=== PATIENT | female | born 1990 | race Caucasian/White ===

== ENCOUNTER 2017-05-16 09:16 | Inpatient (IN) | payer OTHER ==
[~2017-05-16] VITALS: Ht 160 cm; Wt 57.9 kg
--- NOTE | ~2017-05-16 | EKG ---
PATIENT: CORONA OLMSTEAD UNIT #: [id number] Ventricular Rate: 125 BPM Atrial Rate: 125 BPM P-R Interval: 130 ms QRS Duration: 72 ms Q-T Interval: 314 ms QTC Calculation(Bezet): 453 ms P Rentz: 58 degrees Calculated R Rentz: 88 degrees Calculated T Rentz: -39 degrees Diagnosis Line: Sinus tachycardia Diagnosis Line: ST and T wave abnormality, consider inferior Diagnosis Line: ischemia Diagnosis Line: Abnormal ECG Diagnosis Line: No previous ECGs available Diagnosis Line: Confirmed by ROSALES SERNA MD ([id number]) on Diagnosis Line: 05/18/2017 8:23:18 AM INTERPRETING MD: KAREEM KEITA
--- NOTE | ~2017-05-16 | HP ---
Unit #: [id number] #: [id number] Patient: CORONA OLMSTEAD [id number] [address] [address] [id number] I MR#: [id number] NAME: CORONA OLMSTEAD ROOM: 552 Age: 26 Sex: F Admission Date: 05/16/2017 : 1990 Attending Physician: Brigitte Stephens M.D. HISTORY AND PHYSICAL CHIEF COMPLAINT Community-acquired pneumonia. HISTORY OF PRESENT ILLNESS This pleasant, healthy, 26-year-old female was transferred from [facility] Emergency Department for community-acquired pneumonia. The patient was well until yesterday when she developed a nonproductive, deep cough with sore throat, pleuritic chest pain, shortness of breath, head congestion, and myalgias. She presented to [facility] Emergency Department this morning where she was tachycardic, but the rest of her vital signs were normal. Her lactic acid was normal as well, and she was afebrile. Chest x-ray was performed which was suggestive of an infiltrate. She has not been hospitalized over the past three months nor recently taken any antibiotics over the past three months. Denies family illness. She was given Toradol and bolused with two liters of saline after blood cultures were performed. She was then given 2 grams of vancomycin and 4.5 grams of Zosyn. PAST MEDICAL HISTORY Unremarkable. ALLERGIES None. HOME MEDICATIONS Patient took [id number] [place] [facility]. FAMILY HISTORY Negative for heart and lung disease. SOCIAL HISTORY The patient lives with her boyfriend and two children. She denies any possibility of . She smokes one pack per day of tobacco, does not drink alcohol, and does not use illicit drugs. REVIEW OF SYSTEMS Notable for cough, congestion, sore throat, pleuritic chest pain, shortness of breath, tobacco use. All other systems were reviewed and are otherwise negative. PHYSICAL EXAMINATION: GENERAL: A pleasant, somewhat uncomfortable-appearing 26-year-old female Unit #: [id number] #: [id number] Patient: CORONA OLMSTEAD who otherwise is in no acute distress. VITAL SIGNS: She remains afebrile with a temperature of 98, heart rate currently is 82, down from 120, respirations 18, blood pressure 105/63, and O2 saturation was 95% on room air and currently is 99% on 2 liters of oxygen. HEENT: Eyes PERRLA. Extraocular muscles are intact. Pharynx is benign. Tongue is pierced. NECK: Supple without adenopathy or thyromegaly. CHEST: Some mild expiratory wheeze anteriorly. No crackles that I can appreciate. CARDIAC: Normal S1 and S2 without murmur. ABDOMEN: Bowel sounds are present. No hepatosplenomegaly, tenderness, or masses. EXTREMITIES: Without clubbing, cyanosis, or edema. Pedal pulses are present. Of note, there are no splinter hemorrhages noted over the nail beds. NEUROLOGIC: Patient is awake, alert, and oriented. Cranial nerves are intact. Equal strength throughout. DIAGNOSTIC STUDIES ADMISSION LABORATORY: Hematocrit is 44.2 and white blood count is 15.3 with normal platelet count. Normal coags. Negative cardiac enzymes. SMA-12 is completely normal, as is lactic acid. Urinalysis was not performed. IMAGING: Chest x-ray shows mild left infrahilar infiltrate concerning for pneumonia. CARDIOLOGY: EKG shows sinus tachycardia, rate 125, and nonspecific ST wave abnormalities. ASSESSMENT 1. Community-acquired pneumonia. Patient is not septic. She is afebrile with a normal blood pressure and negative lactic acid. 2. Tobacco abuse. PLANS 1. Blood and throat cultures. 2. Change antibiotics to Rocephin and Zithromax as patient has not been hospitalized over the past three months, nor is she immunocompromised. 3. IV fluids and supportive treatment. 4. Smoking cessation counseling and NicoDerm patch. 5. Albuterol and mucolytics. 6. Obtain urinalysis, urine toxicology screen, and HIV. 7. DVT prophylaxis. 8. If a test was not performed, will obtain a test as well. 1. Dictated by Dyan Gomez TD: 05/16/2017 21:15 JOB #: [id number] Unit #: [id number] #: [id number] Patient: CORONA OLMSTEAD HISTORY AND PHYSICAL Page 1 of 1 X Nae Lugo MD HISTORY AND PHYSICAL
--- NOTE | ~2017-05-16 | CR72 ---
[facility]. [facility] A Service of [facility] & [facility] RADIOLOGY TEXT RESULTS PATIENT: CORONA OLMSTEAD LOCATION: SEDOF [id number] : [birth year] UNIT #: [id number] AGE: [address]: KEITH STEPHENS MD SEX: F ORDER DR: [id number] [place] [id number] I MR#: [id number] Acc #: [id number] NAME: CORONA OLMSTEAD : 1990 SEX: F STUDY DATE/TIME: 05/16/2017 9:56 UNIT: SEDOF ROOM: [facility] STUDY DESCRIPTION: CR Chest Single View Portable Attending Physician: Keith Stephens M.D. Ordering Physician: Oliver Curtis M.D. Primary Care Physician: No Primary Care Physician MEDICAL IMAGING REPORT This report is preliminary unless electronic signature is present. EXAM Portable chest, 05/16 INDICATION Cough, shortness of air, and sore throat started yesterday. FINDINGS AP portable chest was obtained. No comparison. Cardiac and mediastinal contours are within normal limits. There is a mild left infrahilar infiltrate concerning for pneumonia. Lungs otherwise are clear. IMPRESSION Mild left infrahilar infiltrate concerning for pneumonia. Exam is otherwise negative. Dictated by... Beck Ramirez Jr., M.D. THIS IS AN ELECTRONICALLY VERIFIED REPORT Beck Ramirez Jr., M.D. at 05/16/2017 3:48 PM LIZZETH/beto TD: 05/16/2017 15:17 JOB #: [id number] MEDICAL IMAGING REPORT Page 1 of 1
--- NOTE | ~2017-05-16 | DS ---
Unit #: [id number] #: [id number] Patient: CORONA OLMSTEAD [id number] [address] [address] [id number] I MR#: [id number] NAME: CORONA OLMSTEAD ROOM: [facility] Age: 26 Sex: F Admission Date: 05/16/2017 : 1990 Discharge Date: 05/18/2017 Attending Physician: Jose Rosen M.D. Primary Care Physician: No Primary Care Physician DISCHARGE SUMMARY PRIMARY DIAGNOSIS Sepsis. SECONDARY DIAGNOSES 1. Community acquired pneumonia. 2. Metabolic acidosis. 3. Hypokalemia. HOSPITAL COURSE The patient was admitted with tachycardia and elevated white blood cell count and the finding of an infiltrate on chest x-ray, as well as cough suggestive of a diagnosis and pneumonia and the finding of an infiltrate on chest x-ray, as well as cough suggestive of a diagnosis and pneumonia. She was admitted to the hospital, was given fluids with bicarb in it for a CO2 level on her BMP of 18 with resolution of the bicarb. Her potassium moved intercellularly with correction of her acidosis with a potassium of 3.4 on the day of discharge, which should resolve without further intervention. She continues to have some cough but was afebrile during her hospitalization. Her tachycardia resolved. Her white blood cell counts came back to normal. Cultures were negative at the time of discharge. Patient did have some mild diarrhea with only a single bowel movement over the twelve hours prior to discharge. She is advised to watch this and come back into the emergency room if it gets significantly worse. Otherwise she can use [id number] medications. DISCHARGE DISPOSITION To home. DISCHARGE STATUS Stable. DISCHARGE ACTIVITY Ad analy. DISCHARGE DIET Unrestricted. DISCHARGE FOLLOWUP With her PCP in one to two weeks. DISCHARGE MEDICATIONS 1. Loperamide 2 mg p.o. q.4 hours p.r.n. diarrhea. 2. Zithromax 500 mg p.o. daily for three days. 3. Omnicef 300 mg p.o. b.i.d. for seven days. Unit #: [id number] #: [id number] Patient: CORONA OLMSTEAD 4. Tessalon Perles 100 mg 2 tablets p.o. t.i.d. p.r.n. for cough. Dictated by... Dyan Noland/yola TD: 05/19/2017 07:24 JOB #: [id number] DISCHARGE SUMMARY Page 1 of 1 X Jose Rosen MD X DISCHARGE SUMMARY
[~2017-05-16 09:16] MED LIST: AMOXICILLIN PO; AMOXICILLIN500 M1 PO; BIRTH CONTROL; LORTAB 5/500 TA1 TA1 PO; MACROBID100 MG PO; NO MEDICATIONS; PRENATAL MULITV1 TAB PO; PRENATAL1 TA1; VICODIN 5/1 TAB 5/50 PO
[2017-05-16] MEDS ORDERED: NO MEDICATIONS (09:28)
[2017-05-16 09:58] LABS: BASOPHIL# 0.1 X10e3 (0-0.3); BASOPHIL% 0.5 % (0-2.5); EOSINOPHIL# 0.2 X10e3 (0-0.7); HEMATOCRIT 44.2 % (35.0-45.0); HEMOGLOBIN 14.9 gm/dL (12.0-16.0); LYMPHOCYTE# 1.3 X10e3 (1.0-3.5); LYMPHOCYTE% 8.6 % (17.0-45.0); MEAN CELL VOLUME 91.9 FL (83-96); MEAN CORPUSCULAR HGB CONC 33.7 g/dL (30-36); MEAN PLATELET VOLUME 8.7 FL (6.5-11.5); MONOCYTE# 0.7 X10e3 (0-1.0); MONOCYTE% 4.9 % (3.0-12.0); PLATELET COUNT 225 X10e3 (140-420); RED BLOOD COUNT 4.81 X10e (3.90-5.30); WHITE BLOOD COUNT 15.3 X10e3 (4.0-10.5)
[2017-05-16 09:59] LABS: DIFF IND NO
[2017-05-16 10:10] LABS: POC - CKMB <1.0 ng/mL (0.0-7.9); POC - MYOGLOBIN 40.9 ng/mL (0.0-169.0)
[2017-05-16 10:11] LABS: POC - TROPONIN <0.05 ng/mL (<=0.05)
[2017-05-16 10:14] LABS: INR 1.2
[2017-05-16 10:22] LABS: ALBUMIN SERUM 4.3 g/dL (3.5-5.0); BILIRUBIN, DIRECT 0.1 mg/dL (0.0-0.2); BILIRUBIN,INDIRECT 0.5 mg/dL (0.0-0.9); BILIRUBIN,TOTAL 0.6 mg/dL (0.2-2.0); BUN/CREATININE RATIO 18.33; CREATININE SERUM 0.6 mg/dL (0.6-1.4); GLOM FILT RATE Estimated 125.8 mL/min (>60); PARTIAL THROMBOPLASTIN TIME 28.6 SECONDS (25.6-38.1); POTASSIUM 3.5 mmol/L (3.5-5.1); PROTEIN TOTAL SERUM 7.2 g/dL (6.0-8.3)
[2017-05-17 06:30] LABS: URINE APPEARANCE CLEAR; URINE BILIRUBIN NEG (NEG); URINE BLOOD NEG (NEG); URINE COLOR YELLOW; URINE GLUCOSE NEG (NEG); URINE KETONE 3+ (NEG); URINE LEUKOCYTE ESTERASE NEG (NEG); URINE NITRATE NEG (NEG); URINE PH 5.5 (5-8); URINE PROTEIN NEG (NEG)
[2017-05-17 06:34] LABS: HEMATOCRIT 35.4 % (35.0-45.0); MEAN CELL VOLUME 92.5 FL (83-96); MEAN CORPUSCULAR HEMOGLOBIN 31.7 PG (28-34); MEAN CORPUSCULAR HGB CONC 34.2 g/dL (30-36); MEAN PLATELET VOLUME 8.8 FL (6.5-11.5); RED BLOOD COUNT 3.82 X10e (3.90-5.30); RED CELL DISTRIBUTION WIDTH 12.9 % (11.0-15.5); WHITE BLOOD COUNT 8.4 X10e3 (4.0-10.5)
[2017-05-17 06:39] LABS: HEMOGLOBIN 12.1 gm/dL (12.0-16.0)
[2017-05-17 07:06] LABS: CALCIUM SERUM 8.3 mg/dL (8.4-10.2); CREATININE SERUM 0.5 mg/dL (0.6-1.4); GLOM FILT RATE Estimated 133.6 mL/min (>60); POTASSIUM 3.7 mmol/L (3.5-5.1)
[2017-05-17 16:57] LABS: AMPHETAMINE NEG (NEG); BARBITURATES NEG (NEG); BENZODIAZEPINES NEG (NEG); COCAINE NEG (NEG); MARIJUANA NEG (NEG); OPIATES POS (NEG); TRICYCLIC ANTIDEPRESSANTS NEG (NEG); U METHADONE NEG (NEG)
[2017-05-18 06:31] LABS: BASOPHIL% 0.5 % (0-2.5); EOSINOPHIL# 0.5 X10e3 (0-0.7); EOSINOPHIL% 7.5 % (0.0-7.0); HEMATOCRIT 33.6 % (35.0-45.0); HEMOGLOBIN 11.4 gm/dL (12.0-16.0); LYMPHOCYTE# 2.7 X10e3 (1.0-3.5); LYMPHOCYTE% 42.1 % (17.0-45.0); MEAN CELL VOLUME 91.2 FL (83-96); MEAN CORPUSCULAR HEMOGLOBIN 30.9 PG (28-34); MEAN CORPUSCULAR HGB CONC 33.9 g/dL (30-36); MEAN PLATELET VOLUME 8.8 FL (6.5-11.5); MONOCYTE# 0.5 X10e3 (0-1.0); NEUTROPHIL# 2.7 X10e3 (1.5-7.1); NEUTROPHIL% 41.9 % (40-75); PLATELET COUNT 190 X10e3 (140-420); RED BLOOD COUNT 3.68 X10e (3.90-5.30); WHITE BLOOD COUNT 6.4 X10e3 (4.0-10.5)
[2017-05-18 06:35] LABS: DIFF IND NO
[2017-05-18 07:07] LABS: CALCIUM SERUM 8.4 mg/dL (8.4-10.2); CREATININE SERUM 0.5 mg/dL (0.6-1.4); GLOM FILT RATE Estimated 133.6 mL/min (>60); POTASSIUM 3.4 mmol/L (3.5-5.1)
[2017-05-18] MEDS ORDERED: IMODIUM A-D2 M2 PO (09:07)
[2017-05-18] MEDS ORDERED: ZITHROMAX500 MG PO (09:08)
[2017-05-18] MEDS ORDERED: OMNICEF300 MG PO (09:10)
[2017-05-18] MEDS ORDERED: TESSALON PERLE100 M1 PO (09:10)
== END 2017-05-18 11:05 | disposition home or self-care (01) | DRG 871 ==
LOC: SED 09:16 → C5B 11:33 → SED 11:33 → SEDOF 11:33 → SED 11:47 → SEDOF 11:47 → UNDODEPER 19:03 → C5B 19:51 → SEDOF 19:51 → C5B 05-17 07:49
PROVIDERS: Emergency Medicine; Internal Medicine
DX: A41.9 Sepsis, unspecified organism (principal); J18.9 Pneumonia, unspecified organism; E87.2 Acidosis; E87.6 Hypokalemia; F17.200 Nicotine dependence, unspecified, uncomplicated
CPT/HCPCS: 71010; 80048; 80076; 80307; 81003; 82553; 83605; 83874; 84484; 84703; 85025; 85027; 85610; 85730; 87040; 87086; 87651; 87806; 93005; 94640; 94760; 96365; 96375; 99291; J0456; J0696; J1650; J1885; J2405; J2543; J3370; J3480